=== PATIENT | female | born 1950 | race Caucasian/White ===

== ENCOUNTER → 2019-07-04 | Outpatient (CLI) | payer MEDICARE ==
[~2019-07-04] MED LIST: ALPR0.254 PO; ARIP10TA33 PO; BISA10SU4 PR; DEXT15LI43 PO; DOCU-131 PO; HYDR-3237 PO; IBUP-1222 PO; INSU100V5 SQ-INSULIN; LACT1CAP24 PO; LACT20SO13 PO; LITH150C PO; METO25TA35 PO; PANT40TA5 PO; SENN-177 PO; TRAZ50TA66 PO; VANC1VIA3 PO
== END | disposition home or self-care (01) ==
LOC: CFH 09:21
PROVIDERS: ATTEND Internal Medicine Cardiovascular Disease
DX: I08.8 Other rheumatic multiple valve diseases (principal); I10 Essential (primary) hypertension; R94.31 Abnormal electrocardiogram [ECG] [EKG]
CPT/HCPCS: 93306

== ENCOUNTER 2019-08-20 09:05 | Day surgery (SDC) | payer MEDICARE ==
[~2019-08-20] VITALS: Ht 167.6 cm; Wt 88.6 kg
[2019-08-20] MEDS ORDERED: MULT-752 PO (10:53)
[2019-08-20] MEDS ORDERED: FERR324T18 PO (10:53)
[2019-08-20] MEDS ORDERED: CALC600T23 PO (10:53)
[2019-08-20] MEDS ORDERED: OMEG-133 PO (10:53)
[2019-08-20] MEDS ORDERED: RISP2TAB3 PO (10:53)
[2019-08-20] MEDS ORDERED: MAGN125C PO (10:53)
[2019-08-20] MEDS ORDERED: MULT-257 PO (10:53)
[2019-08-20] MEDS ORDERED: CHOL10003 PO (10:53)
[2019-08-20] MEDS ORDERED: ATOR40TA78 PO (10:53)
[2019-08-20] MEDS ORDERED: TRAZ50TA66 PO (10:53)
[2019-08-20 10:55] VITALS: BP 175/95
[2019-08-20] MEDS ORDERED: FENTANYL PF 100 MCG/2ML ONE (10:55)
[2019-08-20] MEDS ORDERED: LIDOCAINE 2%, 20ML ONE ×2 (10:55→11:16)
[2019-08-20] MEDS ORDERED: MIDAZOLAM 1 MG/ML, 5ML ONE (10:55)
[2019-08-20 11:02] LABS: INTERNATIONAL NORMALIZED RATIO 0.94 (0.93-1.1)
[2019-08-20 11:04] LABS: ANION GAP 4 mmol/L (5-15); CALCIUM 9.4 mg/dL (8.5-10.1); CHLORIDE 108 mmol/L (98-107); CREATININE 0.96 mg/dL (0.55-1.02)
[2019-08-20 11:05] LABS: MEAN CORPUSCULAR HEMOGLOBIN 32.2 pg (27.0-34.8); MEAN CORPUSCULAR HGB CONC 33.4 g/dL (32.4-35.8); MEAN CORPUSCULAR VOLUME 96.5 fL (80-100); MEAN PLATELET VOLUME 5.9 fL (7.4-10.4); PLATELET COUNT 241 x10^3/uL (130-400); RED BLOOD COUNT 3.73 x10^6/uL (3.82-5.3); RED CELL DISTRIBUTION WIDTH 13.8 % (9.6-15.2)
[2019-08-20 11:39] LABS: BASOPHILS # (AUTO) 0.02 x10^3/uL (0-0.1); BASOPHILS % (AUTO) 1 % (0-1); EOSINOPHILS # (AUTO) 0.18 x10^3/uL (0-0.4); EOSINOPHILS % (AUTO) 5 % (1-7); LYMPHOCYTES # (AUTO) 1.42 x10^3/uL (1-3.4); LYMPHOCYTES % (AUTO) 40 % (22-44); MD SCAN; MONOCYTES % (AUTO) 8 % (2-9); NEUTROPHILS # (AUTO) 1.63 x10^3/uL (1.8-6.8); NEUTROPHILS % (AUTO) 46 % (42-75)
[2019-08-20] MEDS ORDERED: LABETALOL 5MG/ML, 20ML ONE (13:11)
[2019-08-20] MEDS ORDERED: LABETALOL 5MG/ML, 20ML IVPush SCH (13:30)
== END 2019-08-20 14:44 | disposition home or self-care (01) ==
LOC: CACL 09:05
PROVIDERS: ATTEND Internal Medicine Cardiovascular Disease
DX: I35.0 Nonrheumatic aortic (valve) stenosis (principal); I10 Essential (primary) hypertension; E78.5 Hyperlipidemia, unspecified; J44.9 Chronic obstructive pulmonary disease, unspecified; D64.9 Anemia, unspecified; E66.3 Overweight; Z68.31 Body mass index [BMI] 31.0-31.9, adult; Z79.899 Other long term (current) drug therapy; Z87.891 Personal history of nicotine dependence; Z88.0 Allergy status to penicillin; Z88.1 Allergy status to other antibiotic agents; Z88.2 Allergy status to sulfonamides; Z98.890 Other specified postprocedural states
CPT/HCPCS: 36415; 80048; 85025; 85610; 93454; 99156; C1760; C1769; C1894; J2250; J3010; Q9967

== ENCOUNTER 2019-08-27 09:48 | Outpatient (CLI) | payer MEDICARE ==
[~2019-08-27 09:48] MED LIST changes: +ATOR40TA78 PO; +CALC600T23 PO; +CHOL10003 PO; +FERR324T18 PO; +MAGN125C PO; +MULT-257 PO; +MULT-752 PO; +OMEG-133 PO; +RISP2TAB3 PO
[2019-08-27] MEDS ORDERED: VISIPAQUE 320 MG/ML, 150ML BOTTLE ONE (12:18)
[2019-09-03] MEDS ORDERED: ASPI81TA45 PO (07:42)
== END 2019-08-27 23:59 | disposition home or self-care (01) ==
LOC: CVU 09:48 → RAD 23:59
PROVIDERS: ATTEND Internal Medicine Cardiovascular Disease
DX: Z01.818 Encounter for other preprocedural examination (principal); I65.23 Occlusion and stenosis of bilateral carotid arteries; I25.10 Atherosclerotic heart disease of native coronary artery without angina pectoris; I35.0 Nonrheumatic aortic (valve) stenosis; I70.1 Atherosclerosis of renal artery; N28.1 Cyst of kidney, acquired; M79.89 Other specified soft tissue disorders; J98.4 Other disorders of lung
CPT/HCPCS: 71275; 74174; 93880; 94060; 94726; 94729; Q9967

== ENCOUNTER 2019-09-05 07:57 | Inpatient (IN) | payer MEDICARE ==
[~2019-09-05] VITALS: Ht 167.6 cm; Wt 91.4 kg
[~2019-09-05 07:57] MED LIST changes: +ACET325T26 PO; +ASPI81TA45 PO; +CLOP75TA PO
[2019-09-05] MEDS ORDERED: ACETAMINOPHEN 500 MG TABLET ONE (08:06)
[2019-09-05] MEDS ORDERED: SODIUM CHLORIDE FLUSH 10ML SYR IVF ONE (08:30)
[2019-09-05] MEDS ORDERED: SODIUM CHLORIDE 0.9% 1,000 ML IV ONE (08:30)
[2019-09-05] MEDS ORDERED: ACETAMINOPHEN 500 MG TABLET PO ONE (08:30)
--- NOTE | 2019-09-05 08:35 | NUR ---
PT. ARRIVES BY [facility] WITH C/O FEVER, COUGH AND WEAKNESS SINCE LAST NIGHT. PT. IS A & O X 4 WITH A GCS 15. PUPILS ARE PERRLA. PT.'S NECK IS MIDLINE WITHOUT JVD NOTED. CHEST RISE AND FALL IS SYMMETRICAL. BREATH SOUNDS ARE CTA THROUGHOUT. S1 S2 NOTED WITHOUT MURMURS, RUBS OR GALLOPS. ABD. IS SOFT AND NON-TENDER WITH BS + X 4 QUADS. PT. IS PINK, WARM AND DRY. PULSES ARE + 2 THROUGHOUT. PT. HAD A RECENT TAVR PROCEDURE DONE. GROIN SITES HAVE BANDAIDES IN PLACE AND ARE WITHOUT S/S INFECTION. CAP REFILL IS BRISK, LESS THAN THREE SECONDS. PULSES ARE +2 THROUGHOUT. PT. IS ABLE TO MOVE ALL EXTREMITIES WITHIN NORMAL LIMITS BUT STATES SHE FEEL WEEK. UPON ARRIVAL THE PT. WAS PLACED ON THE PROCESS IMPROVEMENT SPECIALIST AND A 12 LEAD EKG WAS DONE. PT. HAS A #20 G IV IN HER RAC ESTABLISHED IN THE FIELD. THE IV SITE IS PATENT AND FLUSHED EASILY. DR. SCHULTZ AT THE BEDSIDE. PT. WAS MEDICATED FOR HER FEVER ORDERED. IV FLUIDS ARE INFUSING ON THE PUMP. STRAIGHT CATH URINE OBTAINED AND TAKEN TO LAB. PT. IS RESTING WITH THE HOB ELEVATED GREATER THAN 30 DEGRESS, CALL LIGHT IS IN PLACE AND THE SIDERAILS ARE UP X 2.
[2019-09-05 09:03] LABS: ALANINE AMINOTRANSFERASE 43 U/L (12-78); ALBUMIN 2.6 g/dL (3.4-5.0); ANION GAP 9 mmol/L (5-15); CALCIUM 8.3 mg/dL (8.5-10.1); CHLORIDE 109 mmol/L (98-107); CREATININE 1.16 mg/dL (0.55-1.02)
[2019-09-05 09:10] LABS: ALKALINE PHOSPHATASE 87 U/L (45-117); BILIRUBIN,TOTAL 1.1 mg/dL (0.2-1.0)
[2019-09-05 09:11] LABS: D-DIMER (DIC) 5.73 ug/mlFEU (0.00-0.52); PROTIME 10.7 Seconds (9.6-11.5)
[2019-09-05 09:22] LABS: BASOPHILS % (AUTO) 0 % (0-1); EOSINOPHILS % (AUTO) 0 % (1-7); LYMPHOCYTES # (AUTO) 0.18 x10^3/uL (1-3.4); LYMPHOCYTES % (AUTO) 3 % (22-44); MD SCAN; MEAN CORPUSCULAR HEMOGLOBIN 31.6 pg (27.0-34.8); MEAN CORPUSCULAR VOLUME 95.7 fL (80-100); MONOCYTES # (AUTO) 0.25 x10^3/uL (0.2-0.8); MONOCYTES % (AUTO) 4 % (2-9); NEUTROPHILS # (AUTO) 6.24 x10^3/uL (1.8-6.8); NEUTROPHILS % (AUTO) 94 % (42-75); PLATELET COUNT 109 x10^3/uL (130-400); RED BLOOD COUNT 3.55 x10^6/uL (3.82-5.3); RED CELL DISTRIBUTION WIDTH 13.5 % (9.6-15.2)
--- NOTE | 2019-09-05 09:45 | NUR ---
PT.'S IV FLUIDS CONTINUE TO INFUSE ON THE PUMP. PT. WAS REPOSITIONED FOR COMFORT. PT.'S FRIEND ELVIN CALLED, PT. STATES IT OK TO UPDATE HER ON THE THE TREATMENTS AND CARE WELL GIVEN HER INFORMATION IN REGARDS TO HER CARE. FRIEND WAS UPDATED ON THE PT.'S CARE AND ADVISED ON COVID-19 PRECAUTIONS SECONDARY TO HER HAVING SYMPTOMS AT THE PT.'S REQUEST. PT. REMAINS MONITORED AND HER IV FLUIDS ARE INFUSING ON THE PUMP. PT. STATES RELIEF FROM THE TYLENOL.
[2019-09-05] MEDS ORDERED: VANCOMYCIN PER PHARMACY MC PRN ×2 (10:00→13:00)
[2019-09-05] MEDS ORDERED: CEFTRIAXONE PMX 1GM/50ML 50 ML IV ONE (10:00)
[2019-09-05] MEDS ORDERED: CEFTRIAXONE PMX 1GM/50ML 50 ML ONE (10:18)
--- NOTE | 2019-09-05 10:29 | NUR ---
PT. IS RESTING AT THIS TIME. IV ABX INFUSING ORDERED. VSS.
[2019-09-05] MEDS ORDERED: VANCOMYCIN 2,000 MG in SODIUM CHLORIDE 0.9% 500 ML IV ONE (10:30)
--- NOTE | 2019-09-05 11:17 | NUR ---
HOSPITALIST AT THE BEDSIDE. COVID S/S DISCUSSED WITH HIM. PT.'S IV ABX ARE INFUSING ON THE PUMP. PT. REMAINS MONITORED. VSS. PT. WAS GIVEN ORAL FLUIDS. SIDERAILS REMAIN UP X 2. CALL LIGHT IN PLACE.
[2019-09-05 11:23] LABS: MICROSCOPIC INDICATED
[2019-09-05] MEDS ORDERED: GABAPENTIN 300 MG CAPSULE PO PRN (11:30)
[2019-09-05] MEDS ORDERED: BUTALB/APAP/CAFFEINE 50MG/325MG/40MG PO PRN (11:30)
[2019-09-05] MEDS ORDERED: MELATONIN 5 MG TABLET PO PRN (11:30)
[2019-09-05] MEDS ORDERED: LABETALOL 5MG/ML, 20ML IVPush PRN (11:30)
[2019-09-05] MEDS ORDERED: LACTATED RINGERS 1,000 ML IV ONE (11:30)
[2019-09-05] MEDS ORDERED: hydrALAzine 20 MG/ML, 1ML IVPush PRN (11:30)
[2019-09-05] MEDS ORDERED: GUAIFENESIN/DM 200-20MG, 10ML UDC PO PRN (11:30)
[2019-09-05] MEDS ORDERED: BACLOFEN 10 MG TABLET PO PRN (11:30)
[2019-09-05] MEDS ORDERED: ACETAMINOPHEN 325 MG TABLET PO PRN ×2 (11:30→13:00)
[2019-09-05] MEDS ORDERED: ENOXAPARIN 40 MG/0.4 ML ONE (11:47)
[2019-09-05] MEDS: ENOXAPARIN 40 MG/0.4 ML SQ SCH (11:51)
--- NOTE | 2019-09-05 12:39 | NUR ---
PT. WAS TRANSPORTED TO ICU CP MONITOR IN PLACE. PT. HAS HER BELONGINGS.
[2019-09-05] MEDS ORDERED: POTASSIUM CHLORIDE 20 MEQ in SODIUM CHLORIDE 0.9% 250 ML IV ONE (13:00)
[2019-09-05] MEDS ORDERED: PHARMACOKINETIC MONITORING MC PRN (15:00)
[2019-09-05] MEDS ORDERED: PHARMACOKINETIC CONSULTATION MC ONE (15:00)
[2019-09-05 15:15] VITALS: BP 106/61
[2019-09-05 15:44] VITALS: BP 107/63
[2019-09-05] MEDS: ASCORBATE SODIUM 3,000 MG in SODIUM CHLORIDE 0.9% 250 ML IVPB SCH ×2 (15:47→22:35)
[2019-09-05 19:53] VITALS: BP 100/59
[2019-09-05] MEDS ORDERED: ATORVASTATIN 40 MG TABLET PO SCH (21:00)
[2019-09-05] MEDS: TRAZODONE 50MG TABLET PO SCH (21:13)
[2019-09-05] MEDS: RISPERIDONE 2 MG TABLET PO SCH (21:13)
[2019-09-05] MEDS: CEFTRIAXONE PMX 1GM/50ML 50 ML IV SCH (21:13)
[2019-09-05] MEDS: METOPROLOL TARTRATE 25 MG TAB PO SCH (21:13)
[2019-09-06 02:00] VITALS: BP 119/70
[2019-09-06 04:53] LABS: MEAN CORPUSCULAR HEMOGLOBIN 31.9 pg (27.0-34.8); MEAN CORPUSCULAR HGB CONC 33.5 g/dL (32.4-35.8); MEAN CORPUSCULAR VOLUME 95.3 fL (80-100); RED BLOOD COUNT 3.07 x10^6/uL (3.82-5.3); RED CELL DISTRIBUTION WIDTH 13.5 % (9.6-15.2)
[2019-09-06 04:54] LABS: ALANINE AMINOTRANSFERASE 71 U/L (12-78); ANION GAP 7 mmol/L (5-15); CALCIUM 7.5 mg/dL (8.5-10.1); CHLORIDE 110 mmol/L (98-107); CREATININE 1.08 mg/dL (0.55-1.02)
[2019-09-06 04:56] LABS: ALKALINE PHOSPHATASE 78 U/L (45-117); BILIRUBIN,TOTAL 0.5 mg/dL (0.2-1.0)
[2019-09-06] MEDS: ASCORBATE SODIUM 3,000 MG in SODIUM CHLORIDE 0.9% 250 ML IVPB SCH ×2 (05:03→10:41)
[2019-09-06 05:45] LABS: MEAN PLATELET VOLUME 6.4 fL (7.4-10.4); PLATELET COUNT 78 x10^3/uL (130-400)
[2019-09-06 05:46] LABS: BASOPHILS # (AUTO) 0.01 x10^3/uL (0-0.1); BASOPHILS % (AUTO) 0 % (0-1); EOSINOPHILS # (AUTO) 0.01 x10^3/uL (0-0.4); EOSINOPHILS % (AUTO) 0 % (1-7); LYMPHOCYTES % (AUTO) 8 % (22-44); MD SCAN; MONOCYTES % (AUTO) 5 % (2-9); NEUTROPHILS # (AUTO) 5.25 x10^3/uL (1.8-6.8); NEUTROPHILS % (AUTO) 86 % (42-75)
[2019-09-06 07:37] VITALS: BP 144/74
[2019-09-06] MEDS ORDERED: ZINC SULFATE 220 MG CAPSULE PO SCH (09:00)
[2019-09-06] MEDS: CEFTRIAXONE PMX 1GM/50ML 50 ML IV SCH (09:14)
[2019-09-06] MEDS: SENNA/DOCUSATE TABLET PO SCH (09:15)
[2019-09-06] MEDS: METOPROLOL TARTRATE 25 MG TAB PO SCH ×2 (09:15→21:57)
[2019-09-06] MEDS: CHOLECALCIFEROL 1,000 UNIT TABLET PO SCH (09:15)
[2019-09-06] MEDS: ASPIRIN 81 MG TABLET EC PO SCH (09:15)
[2019-09-06] MEDS: CLOPIDOGREL 75 MG TABLET PO SCH (09:15)
[2019-09-06] MEDS ORDERED: VANCOMYCIN 1,800 MG in SODIUM CHLORIDE 0.9% 250 ML IV SCH (11:00)
[2019-09-06] MEDS: ENOXAPARIN 40 MG/0.4 ML SQ SCH (12:28)
[2019-09-06 12:30] VITALS: BP 121/64
[2019-09-06] MEDS: RIFAMPIN 300 MG CAPSULE PO SCH (14:47)
[2019-09-06] MEDS: DAPTOMYCIN 700 MG in SODIUM CHLORIDE 0.9% 100 ML IV SCH (15:12)
[2019-09-06 16:17] VITALS: BP 136/77
[2019-09-06 20:15] VITALS: BP 134/77
[2019-09-06] MEDS: RISPERIDONE 2 MG TABLET PO SCH (21:58)
[2019-09-06] MEDS: TRAZODONE 50MG TABLET PO SCH (21:58)
[2019-09-06 22:02] VITALS: BP 137/79
[2019-09-07 02:44] VITALS: BP 126/75
[2019-09-07] MEDS: RIFAMPIN 300 MG CAPSULE PO SCH ×2 (02:47→13:41)
[2019-09-07 05:34] LABS: ANION GAP 6 mmol/L (5-15); CALCIUM 7.6 mg/dL (8.5-10.1); CHLORIDE 107 mmol/L (98-107); CREATININE 0.83 mg/dL (0.55-1.02); MEAN CORPUSCULAR HEMOGLOBIN 32.1 pg (27.0-34.8); MEAN CORPUSCULAR HGB CONC 33.7 g/dL (32.4-35.8); MEAN CORPUSCULAR VOLUME 95.3 fL (80-100); MEAN PLATELET VOLUME 7.6 fL (7.4-10.4); PLATELET COUNT 61 x10^3/uL (130-400); RED BLOOD COUNT 2.95 x10^6/uL (3.82-5.3); RED CELL DISTRIBUTION WIDTH 13.2 % (9.6-15.2)
[2019-09-07 06:13] LABS: BASOPHILS # (AUTO) 0.01 x10^3/uL (0-0.1); BASOPHILS % (AUTO) 0 % (0-1); EOSINOPHILS # (AUTO) 0.09 x10^3/uL (0-0.4); EOSINOPHILS % (AUTO) 3 % (1-7); LYMPHOCYTES # (AUTO) 0.54 x10^3/uL (1-3.4); LYMPHOCYTES % (AUTO) 16 % (22-44); MD SCAN; MONOCYTES # (AUTO) 0.24 x10^3/uL (0.2-0.8); MONOCYTES % (AUTO) 7 % (2-9); NEUTROPHILS # (AUTO) 2.61 x10^3/uL (1.8-6.8); NEUTROPHILS % (AUTO) 75 % (42-75)
[2019-09-07 07:15] VITALS: BP 135/79
[2019-09-07] MEDS: CHOLECALCIFEROL 1,000 UNIT TABLET PO SCH (09:06)
[2019-09-07] MEDS: SENNA/DOCUSATE TABLET PO SCH (09:06)
[2019-09-07] MEDS: METOPROLOL TARTRATE 25 MG TAB PO SCH ×2 (09:06→20:31)
[2019-09-07] MEDS: CLOPIDOGREL 75 MG TABLET PO SCH (09:06)
[2019-09-07] MEDS: ASPIRIN 81 MG TABLET EC PO SCH (09:06)
[2019-09-07] MEDS: ENOXAPARIN 40 MG/0.4 ML SQ SCH (12:45)
[2019-09-07 13:44] VITALS: BP 129/76
[2019-09-07] MEDS: DAPTOMYCIN 700 MG in SODIUM CHLORIDE 0.9% 100 ML IV SCH (14:37)
[2019-09-07] MEDS: RISPERIDONE 2 MG TABLET PO SCH (20:31)
[2019-09-07] MEDS: TRAZODONE 50MG TABLET PO SCH (20:31)
[2019-09-07 20:32] VITALS: BP 149/83
[2019-09-08 02:46] VITALS: BP 153/81
[2019-09-08] MEDS: RIFAMPIN 300 MG CAPSULE PO SCH ×2 (02:49→14:12)
[2019-09-08 04:59] LABS: MEAN CORPUSCULAR HEMOGLOBIN 32.5 pg (27.0-34.8); MEAN CORPUSCULAR HGB CONC 35.1 g/dL (32.4-35.8); MEAN CORPUSCULAR VOLUME 92.6 fL (80-100); MEAN PLATELET VOLUME 7.1 fL (7.4-10.4); PLATELET COUNT 71 x10^3/uL (130-400); RED BLOOD COUNT 2.97 x10^6/uL (3.82-5.3); RED CELL DISTRIBUTION WIDTH 13.3 % (9.6-15.2)
[2019-09-08 05:09] LABS: ANION GAP 6 mmol/L (5-15); CHLORIDE 109 mmol/L (98-107)
[2019-09-08 05:10] LABS: CREATININE 0.74 mg/dL (0.55-1.02)
[2019-09-08 05:45] LABS: BASOPHILS # (AUTO) 0.02 x10^3/uL (0-0.1); BASOPHILS % (AUTO) 1 % (0-1); EOSINOPHILS # (AUTO) 0.09 x10^3/uL (0-0.4); EOSINOPHILS % (AUTO) 3 % (1-7); LYMPHOCYTES # (AUTO) 0.55 x10^3/uL (1-3.4); LYMPHOCYTES % (AUTO) 18 % (22-44); MD SCAN; MONOCYTES # (AUTO) 0.25 x10^3/uL (0.2-0.8); MONOCYTES % (AUTO) 8 % (2-9); NEUTROPHILS # (AUTO) 2.16 x10^3/uL (1.8-6.8); NEUTROPHILS % (AUTO) 71 % (42-75)
[2019-09-08 06:51] VITALS: BP 146/83
[2019-09-08] MEDS: ASPIRIN 81 MG TABLET EC PO SCH (08:27)
[2019-09-08] MEDS: CLOPIDOGREL 75 MG TABLET PO SCH (08:27)
[2019-09-08] MEDS: METOPROLOL TARTRATE 25 MG TAB PO SCH ×2 (08:28→20:13)
[2019-09-08] MEDS: CHOLECALCIFEROL 1,000 UNIT TABLET PO SCH (08:28)
[2019-09-08] MEDS ORDERED: POTASSIUM CHLORIDE 20 MEQ TAB.ER.PRT PO ONE (08:30)
[2019-09-08] MEDS: SENNA/DOCUSATE TABLET PO SCH (08:40)
[2019-09-08] MEDS: ENOXAPARIN 40 MG/0.4 ML SQ SCH (11:40)
[2019-09-08 12:19] VITALS: BP 135/82
[2019-09-08] MEDS: DAPTOMYCIN 700 MG in SODIUM CHLORIDE 0.9% 100 ML IV SCH (15:11)
[2019-09-08 20:05] VITALS: BP 157/88
[2019-09-08] MEDS: RISPERIDONE 2 MG TABLET PO SCH (20:13)
[2019-09-08] MEDS: TRAZODONE 50MG TABLET PO SCH (20:13)
[2019-09-09 01:47] VITALS: BP 157/81
[2019-09-09] MEDS: RIFAMPIN 300 MG CAPSULE PO SCH ×2 (01:51→13:55)
[2019-09-09 05:58] LABS: MEAN CORPUSCULAR HEMOGLOBIN 31.5 pg (27.0-34.8); MEAN CORPUSCULAR HGB CONC 33.8 g/dL (32.4-35.8); MEAN CORPUSCULAR VOLUME 93.2 fL (80-100); MEAN PLATELET VOLUME 7.2 fL (7.4-10.4); PLATELET COUNT 75 x10^3/uL (130-400); RED BLOOD COUNT 2.96 x10^6/uL (3.82-5.3); RED CELL DISTRIBUTION WIDTH 13.1 % (9.6-15.2)
[2019-09-09 06:24] LABS: BASOPHILS # (AUTO) 0.01 x10^3/uL (0-0.1); BASOPHILS % (AUTO) 0 % (0-1); EOSINOPHILS # (AUTO) 0.11 x10^3/uL (0-0.4); EOSINOPHILS % (AUTO) 4 % (1-7); LYMPHOCYTES # (AUTO) 0.68 x10^3/uL (1-3.4); LYMPHOCYTES % (AUTO) 22 % (22-44); MD SCAN; MONOCYTES # (AUTO) 0.34 x10^3/uL (0.2-0.8); MONOCYTES % (AUTO) 11 % (2-9); NEUTROPHILS # (AUTO) 1.96 x10^3/uL (1.8-6.8); NEUTROPHILS % (AUTO) 63 % (42-75)
[2019-09-09 06:58] VITALS: BP 153/77
[2019-09-09] MEDS: ASPIRIN 81 MG TABLET EC PO SCH (10:21)
[2019-09-09] MEDS: METOPROLOL TARTRATE 25 MG TAB PO SCH ×2 (10:21→20:42)
[2019-09-09] MEDS: CLOPIDOGREL 75 MG TABLET PO SCH (10:21)
[2019-09-09] MEDS: CHOLECALCIFEROL 1,000 UNIT TABLET PO SCH (10:21)
[2019-09-09] MEDS: SENNA/DOCUSATE TABLET PO SCH (10:36)
[2019-09-09] MEDS: ENOXAPARIN 40 MG/0.4 ML SQ SCH (12:04)
[2019-09-09 12:25] VITALS: BP 150/83
[2019-09-09] MEDS: DAPTOMYCIN 700 MG in SODIUM CHLORIDE 0.9% 100 ML IV SCH (15:28)
[2019-09-09 20:36] VITALS: BP 172/90
[2019-09-09] MEDS: TRAZODONE 50MG TABLET PO SCH (20:41)
[2019-09-09] MEDS: RISPERIDONE 2 MG TABLET PO SCH (20:42)
[2019-09-09 23:25] VITALS: BP 161/89
[2019-09-10] MEDS: RIFAMPIN 300 MG CAPSULE PO SCH ×2 (01:24→13:49)
[2019-09-10 05:27] LABS: MEAN CORPUSCULAR HEMOGLOBIN 31.8 pg (27.0-34.8); MEAN CORPUSCULAR HGB CONC 33.9 g/dL (32.4-35.8); MEAN CORPUSCULAR VOLUME 93.8 fL (80-100); MEAN PLATELET VOLUME 7.4 fL (7.4-10.4); PLATELET COUNT 90 x10^3/uL (130-400); RED BLOOD COUNT 2.82 x10^6/uL (3.82-5.3); RED CELL DISTRIBUTION WIDTH 13.6 % (9.6-15.2)
[2019-09-10 05:52] LABS: BASOPHILS # (AUTO) 0.02 x10^3/uL (0-0.1); BASOPHILS % (AUTO) 0 % (0-1); EOSINOPHILS % (AUTO) 3 % (1-7); LYMPHOCYTES # (AUTO) 1.03 x10^3/uL (1-3.4); LYMPHOCYTES % (AUTO) 26 % (22-44); MD SCAN; MONOCYTES # (AUTO) 0.44 x10^3/uL (0.2-0.8); MONOCYTES % (AUTO) 11 % (2-9); NEUTROPHILS # (AUTO) 2.35 x10^3/uL (1.8-6.8); NEUTROPHILS % (AUTO) 60 % (42-75)
[2019-09-10 07:15] VITALS: BP 164/81
[2019-09-10] MEDS: ENOXAPARIN 40 MG/0.4 ML SQ SCH (09:48)
[2019-09-10] MEDS ORDERED: METOPROLOL SUCCINATE 50 MG TAB.ER.24H PO SCH (10:00)
[2019-09-10] MEDS: ASPIRIN 81 MG TABLET EC PO SCH (10:27)
[2019-09-10] MEDS: CLOPIDOGREL 75 MG TABLET PO SCH (10:27)
[2019-09-10] MEDS: CHOLECALCIFEROL 1,000 UNIT TABLET PO SCH (10:27)
[2019-09-10] MEDS: SENNA/DOCUSATE TABLET PO SCH (10:27)
[2019-09-10 12:20] VITALS: BP 149/82
[2019-09-10] MEDS ORDERED: ENOX40SY4 SQ (13:51)
[2019-09-10] MEDS ORDERED: METO-93 PO (13:51)
[2019-09-10] MEDS ORDERED: RIFA300C3 PO (13:52)
[2019-09-10] MEDS ORDERED: SENN-193 PO (13:52)
[2019-09-10] MEDS: DAPTOMYCIN 700 MG in SODIUM CHLORIDE 0.9% 100 ML IV SCH (15:40)
== END 2019-09-10 17:35 | DRG 314 ==
LOC: ED 08:50 → EDIP 10:08 → ICU 12:39 → 5SO 09-06 15:32
PROVIDERS: ADMIT Hospitalist; ATTEND Internal Medicine
PROC: 0T9B70Z Drainage of Bladder with Drainage Device, Via Natural or Artificial Opening (ICD-10-PCS; principal; 2019-09-05)
PROC: 02HV33Z Insertion of Infusion Device into Superior Vena Cava, Percutaneous Approach (ICD-10-PCS; 2019-09-10)
PROC: B5181ZA Fluoroscopy of Superior Vena Cava using Low Osmolar Contrast, Guidance (ICD-10-PCS; 2019-09-10)
DX: T82.6XXA Infection and inflammatory reaction due to cardiac valve prosthesis, initial encounter (principal); A41.01 Sepsis due to Methicillin susceptible Staphylococcus aureus; I33.0 Acute and subacute infective endocarditis; I38 Endocarditis, valve unspecified; I50.32 Chronic diastolic (congestive) heart failure; I13.0 Hypertensive heart and chronic kidney disease with heart failure and stage 1 through stage 4 chronic kidney disease, or unspecified chronic kidney disease; N17.9 Acute kidney failure, unspecified; E87.2 Acidosis; D69.6 Thrombocytopenia, unspecified; D63.8 Anemia in other chronic diseases classified elsewhere; E87.6 Hypokalemia; E83.51 Hypocalcemia; E88.09 Other disorders of plasma-protein metabolism, not elsewhere classified; R73.9 Hyperglycemia, unspecified; F31.9 Bipolar disorder, unspecified; F20.9 Schizophrenia, unspecified; I35.0 Nonrheumatic aortic (valve) stenosis; Z88.2 Allergy status to sulfonamides; Z87.891 Personal history of nicotine dependence; Z79.899 Other long term (current) drug therapy; Z88.0 Allergy status to penicillin; Y83.1 Surgical operation with implant of artificial internal device as the cause of abnormal reaction of the patient, or of later complication, without mention of misadventure at the time of the procedure; N18.9 Chronic kidney disease, unspecified; Y92.9 Unspecified place or not applicable
CPT/HCPCS: 36415; 36573; 71045; 80048; 80053; 81001; 82330; 82542; 82550; 82728; 83605; 83615; 83735; 84100; 84132; 84145; 85025; 85049; 85379; 85384; 85610; 85730; 86022; 86140; 87040; 87077; 87081; 87147; 87186; 87635; 93005; 93308; 93321; 93325; 96365; 96375; 99285; G0378; J0696; J0878; J1650; J3370; J3480; C1751; J7030; J7040; J7050; J7120